=== PATIENT | male | born 1995 | race Caucasian/White ===

== ENCOUNTER 2018-04-07 22:00 | Emergency (ER) | payer OTHER | END 2018-04-07 22:57 | disposition home or self-care (01) | LOC: E/R 22:57 | DX: N48.89 Other specified disorders of penis (principal) | CPT/HCPCS: 99282; Z7502 ==

== ENCOUNTER 2019-03-08 23:06 | Emergency (ER) | payer OTHER ==
[2019-03-09] MEDS: KETOROLAC 30 MG INJ IM (02:47)
== END 2019-03-09 05:56 | disposition home or self-care (01) ==
LOC: FTE 23:06
DX: S40.011A Contusion of right shoulder, initial encounter (principal); R07.9 Chest pain, unspecified; V89.2XXA Person injured in unspecified motor-vehicle accident, traffic, initial encounter
CPT/HCPCS: 71046; 73030-RT; 96372; 99284-25